=== PATIENT | female | born 1980 | race African-American/Black ===

== ENCOUNTER → 2018-03-10 | Emergency (ER) | payer MEDICAID | END | disposition left against medical advice (07) | LOC: ER 00:31 | DX: S61.412A Laceration without foreign body of left hand, initial encounter (principal); Z53.21 Procedure and treatment not carried out due to patient leaving prior to being seen by health care provider; X58.XXXA Exposure to other specified factors, initial encounter; Y93.9 Activity, unspecified; Y92.9 Unspecified place or not applicable; Y99.9 Unspecified external cause status ==

== ENCOUNTER 2018-04-03 14:11 | Emergency (ER) | payer MEDICAID ==
[~2018-04-03] VITALS: Ht 160 cm; Wt 83.9 kg
[2018-04-03 15:59] VITALS: BP 128/72
== END 2018-04-03 16:01 | disposition home or self-care (01) ==
LOC: ER 14:14
DX: J06.9 Acute upper respiratory infection, unspecified (principal)

== ENCOUNTER 2018-11-29 23:16 | Emergency (ER) | payer MEDICAID ==
[~2018-11-29] VITALS: Ht 160 cm; Wt 81.6 kg
[2018-11-29 23:36] VITALS: BP 140/86
== END 2018-11-30 00:44 | disposition left against medical advice (07) ==
LOC: ER 23:17
DX: M79.601 Pain in right arm (principal); Z53.21 Procedure and treatment not carried out due to patient leaving prior to being seen by health care provider